=== PATIENT | female | born 1985 | race Caucasian/White ===

== ENCOUNTER 2019-07-25 19:21 | Emergency (ER) | payer OTHER ==
[~2019-07-25] VITALS: Ht 154.9 cm; Wt 65.9 kg
[2019-07-25 19:49] VITALS: Ht 154.9 cm; Wt 65.9 kg
[2019-07-25 23:23] VITALS: BP 140/98
== END 2019-07-25 23:23 | disposition home or self-care (01) ==
LOC: ED 19:21
DX: S46.911A Strain of unspecified muscle, fascia and tendon at shoulder and upper arm level, right arm, initial encounter (principal); W18.09XA Striking against other object with subsequent fall, initial encounter; Y93.89 Activity, other specified; Y92.89 Other specified places as the place of occurrence of the external cause; Y99.8 Other external cause status